=== PATIENT | female | born 1995 | race Caucasian/White ===

== ENCOUNTER 2020-02-06 06:07 | Inpatient (IN) | payer BC ==
[~2020-02-06] VITALS: Ht 175.3 cm; Wt 188.0 kg
[2020-02-06] MEDS ORDERED: OXYTOCIN 30U/ 0.9% NaCL 500ML 500 ML ONE (06:17)
[2020-02-06] MEDS ORDERED: LIDOCAINE 1%, 20ML ONE (06:17)
[2020-02-06] MEDS ORDERED: MISOPROSTOL 200 MCG TABLET ONE (06:17)
[2020-02-06 06:23] VITALS: BP 131/60
[2020-02-06] MEDS ORDERED: ASPI-515 PO (06:31)
[2020-02-06] MEDS ORDERED: PREN1TAB62 PO (06:31)
[2020-02-06] MEDS ORDERED: LABE200T6 PO (06:31)
[2020-02-06] MEDS ORDERED: FENTANYL PF 100 MCG/2ML IV PRN (07:00)
[2020-02-06] MEDS ORDERED: FENTANYL PF 100 MCG/2ML IVPush PRN (07:00)
[2020-02-06] MEDS ORDERED: ONDANSETRON 2MG/ML, 2ML IVPush PRN ×2 (07:00→14:00)
[2020-02-06] MEDS: D5%-LACTATED RINGERS 1,000 ML IV SCH ×3 (07:00→23:00)
[2020-02-06] MEDS ORDERED: OXYTOCIN 30U/ 0.9% NaCL 500ML 500 ML IV PRN (07:00)
[2020-02-06] MEDS ORDERED: OXYTOCIN 30U/ 0.9% NaCL 500ML 500 ML IV ONE (07:00)
[2020-02-06] MEDS ORDERED: TERBUTALINE 1 MG/ML, 1ML SQ PRN (07:00)
[2020-02-06] MEDS ORDERED: TERBUTALINE 1 MG/ML, 1ML IVPush PRN (07:00)
[2020-02-06] MEDS: LACTATED RINGERS 1,000 ML IV SCH ×5 (07:03→23:00)
[2020-02-06 07:26] LABS: BASOPHILS % (AUTO) 0 % (0-1); EOSINOPHILS % (AUTO) 1 % (1-7); LYMPHOCYTES % (AUTO) 25 % (22-44); MD NO; MEAN CORPUSCULAR HEMOGLOBIN 27.3 pg (27.0-34.8); MEAN CORPUSCULAR HGB CONC 33.2 g/dL (32.4-35.8); MEAN PLATELET VOLUME 8.6 fL (7.4-10.4); MONOCYTES % (AUTO) 4 % (2-9); NEUTROPHILS % (AUTO) 70 % (42-75); PLATELET COUNT 332 x10^3/uL (130-400); RED BLOOD COUNT 4.07 x10^6/uL (3.82-5.3); RED CELL DISTRIBUTION WIDTH 15.5 % (9.6-15.2)
[2020-02-06] MEDS ORDERED: NEWBORN KIT ONE (07:31)
[2020-02-06 07:36] LABS: ALANINE AMINOTRANSFERASE 18 U/L (12-78); ALBUMIN 2.3 g/dL (3.4-5.0); ANION GAP 8 mmol/L (5-15); CALCIUM 8.7 mg/dL (8.5-10.1); CHLORIDE 107 mmol/L (98-107)
[2020-02-06 07:41] LABS: ALKALINE PHOSPHATASE 176 U/L (45-117); BILIRUBIN,TOTAL 0.2 mg/dL (0.2-1.0); TOTAL PROTEIN 6.7 g/dL (6.4-8.2)
[2020-02-06 07:42] LABS: BILIRUBIN, DIRECT < 0.1 mg/dL (0.1-0.2)
[2020-02-06 07:59] LABS: MICROSCOPIC INDICATED
[2020-02-06] MEDS ORDERED: FENTANYL/BUPIV./NS/PF 250 ML EPIDCONT ONE (11:37)
[2020-02-06] MEDS ORDERED: BUPIVACAINE 0.25% ONE (12:51)
[2020-02-06] MEDS ORDERED: FENTANYL/BUPIV./NS/PF 250 ML EPIDCONT SCH (14:00)
[2020-02-06] MEDS ORDERED: NALOXONE 0.4 MG/ML, 1ML IVPush PRN (14:00)
[2020-02-06] MEDS ORDERED: EPHEDRINE 50 MG/ML, 1ML IVPush PRN (14:00)
[2020-02-06] MEDS ORDERED: LACTATED RINGERS 1,000 ML IVBOLUS PRN (14:00)
[2020-02-06] MEDS ORDERED: DIPHENHYDRAMINE 50 MG/ML, 1ML IVPush PRN (14:00)
[2020-02-07] MEDS ORDERED: OXYTOCIN 30U/ 0.9% NaCL 500ML 500 ML ONE (00:12)
[2020-02-07] MEDS ORDERED: MISOPROSTOL 200 MCG TABLET PR ONE (00:30)
[2020-02-07] MEDS ORDERED: METHYLERGONOVINE 0.2 MG/ML IM PRN (01:00)
[2020-02-07] MEDS ORDERED: HYDROcodone/APAP 5/325 TABLET PO PRN (01:00)
[2020-02-07] MEDS ORDERED: ONDANSETRON 2MG/ML, 2ML IV PRN (01:00)
[2020-02-07] MEDS ORDERED: MISOPROSTOL 200 MCG TABLET PR PRN (01:00)
[2020-02-07] MEDS ORDERED: SIMETHICONE 80 MG CHEW TAB PO PRN (01:00)
[2020-02-07] MEDS ORDERED: OXYTOCIN 10 UNITS/ML, 1ML IM PRN (01:00)
[2020-02-07] MEDS ORDERED: OXYTOCIN 30U/ 0.9% NaCL 500ML 500 ML IV SCH (01:00)
[2020-02-07] MEDS ORDERED: ACETAMINOPHEN 325 MG TABLET PO PRN (01:00)
[2020-02-07 03:10] VITALS: BP 136/79
[2020-02-07] MEDS: LACTATED RINGERS 1,000 ML IV SCH ×2 (06:00→07:00)
[2020-02-07] MEDS: D5%-LACTATED RINGERS 1,000 ML IV SCH (07:00)
[2020-02-07] MEDS: DOCUSATE 100 MG CAPSULE PO PRN ×2 (07:14→19:21)
[2020-02-07] MEDS: IBUPROFEN 600 MG TABLET PO PRN ×3 (07:14→19:21)
[2020-02-07] MEDS: PRENATAL VIT/IRON/FA 1 EACH TABLET PO SCH (07:14)
[2020-02-07 07:45] VITALS: BP 133/78
[2020-02-07 08:01] LABS: BASOPHILS % (AUTO) 1 % (0-1); EOSINOPHILS % (AUTO) 0 % (1-7); LYMPHOCYTES % (AUTO) 20 % (22-44); MEAN CORPUSCULAR HEMOGLOBIN 27.2 pg (27.0-34.8); MEAN CORPUSCULAR HGB CONC 33.7 g/dL (32.4-35.8); MEAN PLATELET VOLUME 8.7 fL (7.4-10.4); MONOCYTES % (AUTO) 6 % (2-9); NEUTROPHILS % (AUTO) 73 % (42-75); PLATELET COUNT 306 x10^3/uL (130-400); RED BLOOD COUNT 3.97 x10^6/uL (3.82-5.3); RED CELL DISTRIBUTION WIDTH 15.6 % (9.6-15.2)
[2020-02-07 08:03] LABS: MD NO
[2020-02-07 12:15] VITALS: BP 128/79
[2020-02-07] MEDS: HYDROcodone/APAP 5/325 TABLET PO PRN ×2 (15:13→20:32)
[2020-02-07 16:30] VITALS: BP 124/68
[2020-02-07 20:30] VITALS: BP 127/82
[2020-02-08 00:09] VITALS: BP 130/72
[2020-02-08] MEDS: HYDROcodone/APAP 5/325 TABLET PO PRN ×3 (02:21→12:11)
[2020-02-08] MEDS: IBUPROFEN 600 MG TABLET PO PRN ×3 (02:21→13:42)
[2020-02-08 04:10] VITALS: BP 134/72
[2020-02-08 07:45] VITALS: BP 137/83
[2020-02-08] MEDS: PRENATAL VIT/IRON/FA 1 EACH TABLET PO SCH (08:09)
[2020-02-08] MEDS: DOCUSATE 100 MG CAPSULE PO PRN (08:09)
[2020-02-08] MEDS ORDERED: IBUP-1222 PO (13:28)
[2020-02-08] MEDS ORDERED: HYDR-3240 PO (13:28)
[2020-02-08] MEDS ORDERED: SENN-92 PO (13:29)
== END 2020-02-08 14:00 | disposition home or self-care (01) | DRG 806 ==
LOC: LDIP 06:07 → 2NW 02-07 02:40
PROVIDERS: ADMIT Obstetrics & Gynecology; ATTEND Obstetrics & Gynecology
PROC: 10E0XZZ Delivery of Products of Conception, External Approach (ICD-10-PCS; principal; 2020-02-06)
PROC: 0KQM0ZZ Repair Perineum Muscle, Open Approach (ICD-10-PCS; 2020-02-06)
PROC: 10H07YZ Insertion of Other Device into Products of Conception, Via Natural or Artificial Opening (ICD-10-PCS; 2020-02-06)
PROC: 10907ZC Drainage of Amniotic Fluid, Therapeutic from Products of Conception, Via Natural or Artificial Opening (ICD-10-PCS; 2020-02-06)
PROC: 3E0R3BZ Introduction of Anesthetic Agent into Spinal Canal, Percutaneous Approach (ICD-10-PCS; 2020-02-06)
PROC: 00HU33Z Insertion of Infusion Device into Spinal Canal, Percutaneous Approach (ICD-10-PCS; 2020-02-06)
DX: O69.1XX0 Labor and delivery complicated by cord around neck, with compression, not applicable or unspecified (principal); O10.92 Unspecified pre-existing hypertension complicating childbirth; Z37.0 Single live birth; Z20.828 Contact with and (suspected) exposure to other viral communicable diseases; O69.82X0 Labor and delivery complicated by other cord entanglement, without compression, not applicable or unspecified; O70.1 Second degree perineal laceration during delivery; O71.82 Other specified trauma to perineum and vulva; O76 Abnormality in fetal heart rate and rhythm complicating labor and delivery; Z3A.38 38 weeks gestation of pregnancy
CPT/HCPCS: 36415; 80053; 81001; 82248; 82570; 84156; 84550; 85025; 86592; 86762; 86803; 86850; 86900; 87340; 87806; G0378; G0475; J2590; J7120; U0003